=== PATIENT | female | born 1940 | race Caucasian/White ===

== ENCOUNTER → 2017-07-17 14:35 | Outpatient (CLI) | payer MEDICARE, SELFPAY ==
--- NOTE | 2017-07-17 14:43 | XR_ITS ---
XR chest 2V HISTORY: ITS.REASON: PERDOMO, PANLOBULAR EMPHYSEMA ORDERING PHYSICIAN: Travis Batres MD PATIENT AGE: 76 years COMPARISON: 08/04/2016 FINDINGS: The cardiomediastinal silhouette and pulmonary vascularity are within normal limits. There is hyperinflation with attenuation of the peripheral pulmonary vessels consistent with COPD/emphysema. The diaphragms are flattened and somewhat inverted. Calcified granulomas are present in the right lung base. No lobar consolidation or collapse. No effusions and no acute bony anomalies. IMPRESSION: Emphysema, no acute finding
== END ==
PROVIDERS: PCP Internal Medicine Adolescent Medicine; Visit Provider Internal Medicine Adolescent Medicine
DX: J43.1 Panlobular emphysema (principal); R06.09 Other forms of dyspnea
CPT/HCPCS: 71046

== ENCOUNTER 2017-09-15 09:45 | Day surgery (SDC) | payer MEDICARE, SELFPAY ==
[2017-09-12 13:59] VITALS: BMI 39.1
[2017-09-15] VITALS (7 sets, daily range): BP systolic 106–146; BP diastolic 61–77; PULSE 81–106; RESP 16–20; TEMP 36.4–36.6; O2SAT 96–100
--- NOTE | 2017-09-15 10:30 | HMH.ANESCL ---
[facility] Anesthesia Checklist - Patient Identification Patient Identification: Arm Band, Verbal (Name & ) - Structural Data Admitted From: Home Planned Operative Procedure/s: endo Consent for Planned Operative Procedure(s) Verified: Yes Verified Documents: Surgical Consent - NPO Status Verified Time NPO: 00:00 - Additional verifications Patient : No Anesthesia Reactions: No Hx Blood Transfusions: No Blood Transfusion Reaction: No Cephalosporin Allergy: No Previous Colonoscopy: Yes - Cardiovascular Assessment Heart Sounds: S1 & S2 Pulse Strength: Baseline Pulse Rhythm: Regular - Airway Assessment C-Spine Mobility Assessed: Yes TMJ Mobility Assessed: Yes Dentition: Edentulous - Neurological Assessment Level of Consciousness: Awake, Alert, Appropriate Hx Seizures: No Numbness or tingling in extremities: No - Anesthesia Plan Anesthesia Risk discussed: Yes Anesthesia Plan: Verified ASA Class: III Anesthesia Type: MAC [facility] Anesthesia HX I have reviewed the patient's past medical history: Yes Medical History: Reports:: Chronic Obstructive Pulmonary Disease (COPD), Lung Disease (copd/emphysema) Denies:: Diabetes Mellitus Type 1, Diabetes Mellitus Type 2, Internal Pacemaker, Seizures Other Surgeries: No: Pacemaker
--- NOTE | 2017-09-15 11:28 | HMH.PROC ---
[facility] Procedure Note Procedure Note:: Colonoscopy Procedure Report: Colonoscopy with cold snare polypectomy Endoscopist: Wali Bettencourt II, MD Referring physician: Travis Batres M.D. Date of Procedure: September 15, 2017 Equipment: Olympus 180 variable stiffness pediatric colonoscope Sedation: MAC sedation Indication: Mrs. Isabel is a 76-year-old female who had a positive Cologuard and small caliber stools and had a colonoscopy in March 2018. At that time she had 8 colon polyps removed. 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 The polyp appeared to be both tubular adenoma and serrated adenoma. The patient returns at 6 months to evaluate to ensure no residual colon polyp. The patient reports no abdominal pain, weight loss, change in her bowel habits or rectal bleeding. She does state that the fiber pills/tablets have significantly helped her. Procedure: Prior to the procedure, a history and physical exam was performed, and patient's medications and allergies were reviewed. The risks, benefits and alternatives of the sedation and procedure were discussed with the patient. All questions were answered and informed consent was obtained. The patient was brought to the procedure room. Patient identification and proposed procedure were verified by the physician and the nurse. The patient was placed in a left lateral decubitus position and the scope was passed under direct vision. Throughout the procedure, the patient's blood pressure, pulse, and oxygen saturations were monitored continuously. The colonoscopy was accomplished without difficulty. The patient tolerated the procedure well. Findings: On digital rectal examination there was normal rectal tone. There were no external hemorrhoids. The colonoscope was introduced through the anal canal to the rectum and advanced to the cecum. The ileocecal valve and appendiceal orifice were identified. The scope was advanced a short distance into the ileum which appeared grossly normal. The scope was then withdrawn into the colon. There were 6 colon polyps identified in the descending ?2, sigmoid ?2 and rectum ?2. These ranged in size from 4-7 mm and were all removed via cold snare polypectomy. There were scattered diverticuli throughout the descending and sigmoid colon (LEFT colon). The rectum itself was normal. Upon retroflexion within the rectum there were grade 1 internal hemorrhoids. Impression: 1. Colonic polyps ?6 2. Left-sided diverticulosis 3. Grade 1 internal hemorrhoids Plan: The polyps today were much smaller and behind haustral folds. I do feel that at this point, we can increase the surveillance interval to 2-3 years based upon the histology. I would continue fiber bulk supplementation on a long-term daily maintenance basis.
--- NOTE | 2017-09-15 11:31 | P.PCN_ITS ---
[facility] Procedure Note Procedure Note:: Colonoscopy Procedure Report: Colonoscopy with cold snare polypectomy Endoscopist: Wali Bettencourt II, MD Referring physician: Travis Batres M.D. Date of Procedure: September 15, 2017 Equipment: Olympus 180 variable stiffness pediatric colonoscope Sedation: MAC sedation Indication: Mrs. Isabel is a 76-year-old female who had a positive Cologuard and small caliber stools and had a colonoscopy in March 2018. At that time she had 8 colon polyps removed. 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 The polyp appeared to be both tubular adenoma and serrated adenoma. The patient returns at 6 months to evaluate to ensure no residual colon polyp. The patient reports no abdominal pain, weight loss, change in her bowel habits or rectal bleeding. She does state that the fiber pills/tablets have significantly helped her. Procedure: Prior to the procedure, a history and physical exam was performed, and patient' s medications and allergies were reviewed. The risks, benefits and alternatives of the sedation and procedure were discussed with the patient. All questions were answered and informed consent was obtained. The patient was brought to the procedure room. Patient identification and proposed procedure were verified by the physician and the nurse. The patient was placed in a left lateral decubitus position and the scope was passed under direct vision. Throughout the procedure, the patient's blood pressure, pulse, and oxygen saturations were monitored continuously. The colonoscopy was accomplished without difficulty. The patient tolerated the procedure well. Findings: On digital rectal examination there was normal rectal tone. There were no external hemorrhoids. The colonoscope was introduced through the anal canal to the rectum and advanced to the cecum. The ileocecal valve and appendiceal orifice were identified. The scope was advanced a short distance into the ileum which appeared grossly normal. The scope was then withdrawn into the colon. There were 6 colon polyps identified in the descending ?2, sigmoid ? 2 and rectum ?2. These ranged in size from 4-7 mm and were all removed via cold snare polypectomy. There were scattered diverticuli throughout the descending and sigmoid colon (LEFT colon). The rectum itself was normal. Upon retroflexion within the rectum there were grade 1 internal hemorrhoids. Impression: 1. Colonic polyps ?6 2. Left-sided diverticulosis 3. Grade 1 internal hemorrhoids Plan: The polyps today were much smaller and behind haustral folds. I do feel that at this point, we can increase the surveillance interval to 2-3 years based upon the histology. I would continue fiber bulk supplementation on a long-term daily maintenance basis.
--- NOTE | 2017-09-15 13:03 | P.PN_ITS ---
[facility] Anesthesia Checklist - Structural Data Planned Operative Procedure/s: colonoscopy Consent for Planned Operative Procedure(s) Verified: Yes - Anesthesia Plan Anesthesia Risk discussed: Yes Anesthesia Plan: Verified ASA Class: III Anesthesia Type: MAC [facility] Anesthesia HX I have reviewed the patient's past medical history: Yes Medical History: Reports:: Chronic Obstructive Pulmonary Disease (COPD), Lung Disease (copd/emphysema) Denies:: Diabetes Mellitus Type 1, Diabetes Mellitus Type 2, Internal Pacemaker, Seizures Other Medical History: Denies: Blood Transfusion Reaction Other Surgeries: No: Pacemaker
--- NOTE | 2017-09-15 13:57 | PC.NURSE ---
Dr. Bettencourt @ @ 1200. No new orders received. Follow up colonoscopy in 2 to 3 years.
== END 2017-09-15 12:10 | disposition home or self-care (01) ==
PROVIDERS: PCP Internal Medicine Adolescent Medicine; Visit Provider Internal Medicine Gastroenterology
PROC: 0DJD8ZZ Inspection of Lower Intestinal Tract, Via Natural or Artificial Opening Endoscopic (ICD-10-PCS; CPT 45378; principal; 2017-09-15 11:00)
DX: K63.5 Polyp of colon (principal); K57.30 Diverticulosis of large intestine without perforation or abscess without bleeding; K64.0 First degree hemorrhoids; Z86.010 Personal history of colon polyps
CPT/HCPCS: 45380; 88305

== ENCOUNTER → 2017-09-22 13:26 | Outpatient (CLI) | payer MEDICARE, SELFPAY | PROVIDERS: PCP Internal Medicine Adolescent Medicine; Visit Provider Internal Medicine | DX: J43.9 Emphysema, unspecified (principal) ==

== ENCOUNTER → 2017-09-23 09:18 | Outpatient (CLI) | payer MEDICARE, SELFPAY ==
[2017-09-23 09:59] LABS: Chol/HDL Ratio 1.1 (1-3.5); Cholesterol 156 mg/dL (140-200); HDL Cholesterol 140 mg/dL (29-89); LDL Cholesterol 7 mg/dL (0-130); Triglycerides 43 mg/dL (30-200); VLDL Cholesterol 9 mg/dL (0-40)
== END ==
PROVIDERS: Visit Provider Internal Medicine
DX: J43.9 Emphysema, unspecified (principal); I25.10 Atherosclerotic heart disease of native coronary artery without angina pectoris
CPT/HCPCS: 36415; 80061

== ENCOUNTER → 2017-09-30 12:56 | Outpatient (POV) | payer MEDICARE, SELFPAY | PROVIDERS: Visit Provider Internal Medicine | DX: Z00.00 Encounter for general adult medical examination without abnormal findings (principal) ==

== ENCOUNTER 2017-10-17 18:20 | Observation (INO) ==
[2017-10-17 19:04] LABS: Basophils % 0.2 % (0.1-2.0); Eosinophils % 0.2 % (0.1-12.0); Hematocrit 40.2 % (37.0-47.0); Hemoglobin 12.8 g/dL (12.2-16.2); Lymphocytes # 1.4 K/mm3 (0.7-4.5); Lymphocytes % 12.2 K/mm3 (10-50); Mean Corpuscular Hemoglobin 30.7 pg (27.0-31.2); Mean Platelet Volume 7.4 fl (7.4-10.4); Monocytes # 0.8 K/mm3 (0.1-1.0); Monocytes % 7.3 % (1.7-9.3); Neutrophils # 8.9 K/mm3 (1.8-7.8); Neutrophils % 80.1 % (37.0-80.0); Platelet Count 230 K/mm3 (142-424); Red Blood Count 4.18 M/mm3 (4.20-5.40); Red Cell Distribution Width 12.8 % (11.5-17.5); White Blood Count 11.1 K/mm3 (4.8-10.8)
[2017-10-17 19:29] LABS: Alanine Aminotransferase 59 U/L (12-78); Albumin Level 3.9 gm/dL (3.4-5.0); Albumin/Globulin Ratio 1.1 (1.1-1.8); Alkaline Phosphatase 67 U/L (46-116); Anion Gap 5.8 mEq/L (5-15); Aspartate Amino Transferase 43 U/L (15-37); Bilirubin,Total 0.3 mg/dL (0.2-1.0); Blood Urea Nitrogen 11 mg/dL (7-18); Calcium 9.2 mg/dL (8.5-10.1); Carbon Dioxide 37 mmol/L (21.0-32.0); Chloride 102 mmol/L (98-107); Creatine Kinase 160 U/L (26-192); Globulin 3.6 gm/dl (1.3-3.2); Glucose 110 mg/dL (74-106); Potassium 3.8 mmoL/L (3.5-5.1); Sodium 141 mmol/L (136-145); Total Protein,Serum 7.5 gm/dL (6.4-8.2)
--- NOTE | 2017-10-17 20:23 | Emergency Department Note ---
ED Disposition Clinical Impression: COPD exacerbation Disposition: Still a Patient Condition on Discharge: Good - Critical Care Critical Care Time: No Attestation: On 10/17/17, the high probability of a clinically significant, sudden or life threatening deterioration of the following system(s) required my full and direct attention, intervention and personal management. The time I documented below is in addition to time spent performing reported procedures but includes the following listed in this critical care notation. Medical Decision Making - [place] Inquiry Pt receiving controlled substance: No Vital Signs: 10/17/17 18:51 10/17/17 18:54 Temperature 98.6 F Temperature Source Oral Pulse Rate 93 H Pulse Rate [Left Radial] 94 H Respiratory Rate 22 Blood Pressure [Right Arm] 163/88 Blood Pressure Mean [Right Arm] 113 Blood Pressure Position [Right Arm] Sitting 02 Sat by Pulse Oximetry 100 Oxygen Delivery Method Room Air - Lab Data Lab Results 10/17/17 18:40: WBC 11.1 H, RBC 4.18 L, Hgb 12.8, Hct 40.2, MCV 96.0, MCH 30.7, MCHC 32.0, RDW 12.8, Plt Count 230, MPV 7.4, Neut % (Auto) 80.1 H, Lymph % (Auto ) 12.2, Schleicher % (Auto) 7.3, Eos % (Auto) 0.2, Baso % (Auto) 0.2, Neut # (Auto) 8.9 H, Lymph # (Auto) 1.4, Schleicher # (Auto) 0.8, Eos # (Auto) 0.0, Baso # (Auto) 0.0 10/17/17 18:40: Sodium 141, Potassium 3.8, Chloride 102, Carbon Dioxide 37 H, Anion Gap 5.8, BUN 11, Creatinine 0.70, Estimated Creat Clear 37, Estimated GFR 82, Est GFR ( Amer) 99, Glucose 110 H, Calcium 9.2, Total Bilirubin 0.3, AST 43 H, ALT 59, Alkaline Phosphatase 67, Total Creatine Kinase 160, CK-MB (CK- 2) 4.8 H, CK-MB (CK-2) Rel Index 3.0, Troponin I < 0.02, Total Protein 7.5, Albumin 3.9, Globulin 3.6 H, Albumin/Globulin Ratio 1.1 10/17/17 18:40: Lactic Acid 0.7 10/17/17 18:40: D-Dimer 222 Result diagrams: 10/17/17 18:40 10/17/17 18:40 Orders (Tests/Meds): ED MEDICATIONS Discontinued Medications Generic Name Dose Route Start Last Admin Trade Name Gi PRN Reason Stop Dose Admin Albuterol/Ipratropium 3 ml 10/17/17 18:58 10/17/17 18:59 Duoneb 3ml Neb IH 10/17/17 18:59 3 ml ONCE ONE Administration Methylprednisolone Sodium Succinate 125 mg 10/17/17 19:19 10/17/17 19:21 Solu-Medrol 125mg/2ml Vial IV 10/17/17 19:20 125 mg ONCE ONE Administration ORDERS Category Date Time Status CXR --portable [XR chest portable] Stat Exams 10/17/17 18:57 Taken Blood Culture Stat Micro 10/17/17 18:40 Received - Radiology Data #1 Image(s): Chest Image Reviewed: Yes I reviewed the patient's radiology image COPD, pulmonary fibrosis, calcified granulomas right base. No acute process seen. No pneumothorax or pneumonia seen. - ECG Data Tracing #1 EKG interpreted by Zachary Giordano MD: Rhythm: sinus tachycardia Rate: 111 [place]: normal Ectopy: none Conduction: normal ST Segment Changes: none T Wave Changes: none Q Waves: V1 and V2 No evidence of acute ischemia or injury Poor R-wave progression Prior electrocardiagrams reviewed. No change from prior tracings. Baseline artifact present, but I consider the EKG adequate for accurate interpretation. Medical Decision Narrative: Patient has been on maximal treatment at home and is failed outpatient management. She indicates that she is not able to get up and function today. I recommended admission and she is agreeable. 9:20 PM: I have discussed the case with Dr. Saleh for Dr. Batres who agrees to admit the patient to the hospital. We discussed the patient's clinical information, including history, exam, laboratory and radiology results and ED course. Per hospital procedure, I will write temporary bridge inpatient orders on the patient. Specific orders requested by the admitting physician: Continue intravenous steroids, nebulizer treatments. No antibiotics at this time. General Adult HPI - General Chief complaint: Shortness of Breath/Dyspnea Stated complaint: SOA Time Seen by Provider: 10/17/17 20:10 Mode of Arrival: Wheelchair Limitations: No Limitations Description of Symptoms (Recalled from ER Triage Doc. by RN): Feeling SOA starting Friday , talked to Eduardason her increased steroid but states it has not gotten any better - History of Present Illness HPI narrative: 8:00 PM: At shift change, patient report received from Dr. Salinas, and care of the patient assumed by me at this time. The patient has severe COPD, she is on oxygen at home. She is chronically on steroids and nebulizer treatments and inhalers. She takes an antibiotic 3 times a week. She says that she got increasingly short of breath over the weekend 6 days ago. Today she says she can hardly get up and walk due to shortness of breath and she also has a pleuritic pain in both shoulder blades. She denies cough or hemoptysis or fever. She says she has never had this kind of pain before. She says that she called her primary care provider on Friday and her prednisone dose was increased from 10 mg a day to 40 mg a day. She also says that her computer publisher, Dr. Washington, recently changed 1 of her inhalers from Spiriva to a different one, she does not know the name. No leg pain or swelling. No recent hospitalizations or surgeries. - Related Data Home Medications Medication Instructions Recorded Confirmed Albuterol Sulfate [Albuterol 1.25 mg IH DAILY 09/12/17 10/17/17 0.042% 1.25mg/3mL neb] Azithromycin [Z-[place] 250mg Tab] 250 mg PO WEEKLY 09/12/17 10/17/17 Miscellaneous Medical Supply 1 each IH CONT 09/12/17 10/17/17 [Oxygen, Portable] Tiotropium [place] [Spiriva 1 mcg PO DAILY 09/12/17 10/17/17 18mcg/puff inhaler] Atorvastatin Calcium [Atorvastatin 40 mg PO DAILY 09/15/17 10/17/17 40mg Tab] Methylcellulose [Fiber] 500 mg PO DAILY 09/15/17 10/17/17 predniSONE [Prednisone 20mg 20 mg PO DAILY 09/15/17 10/17/17 Tab] Allergies Allergy/AdvReac Type Severity Reaction Status Date / Time No Known Allergies Allergy Verified 09/15/17 09:59 [facility] History I have reviewed the patient's past medical history: Yes Medical History: Reports:: Chronic Obstructive Pulmonary Disease (COPD), Lung Disease (copd/emphysema) Denies:: Diabetes Mellitus Type 1, Diabetes Mellitus Type 2, Internal Pacemaker, Seizures Other Medical History: Denies: Blood Transfusion Reaction Other Surgeries: No: Pacemaker - Social History Smoking Status: Former smoker Smoking End Date: 2014 Alcohol Intake: current Alcohol Intake Frequency:: holidays/special occasions only - Psychiatric History Expresses thoughts of harming self/others: None Suicide Plan Description: No Plan ROS Obtained: Yes All systems reviewed & no additional complaints - Constitutional Constitutional: Denies fatigue - Cardiovascular Cardiovascular: Reports chest pain, Denies leg edema - Respiratory Respiratory: No cough, Yes dyspnea, No coughing up blood - Gastrointestinal Gastrointestingal: Denies: vomiting Physical Exam - General General appearance: alert, in no apparent distress - Head Head exam: atraumatic, normocephalic, normal inspection - Eye Eye exam: Present: normal appearance, PERRL, EOMI - ENT ENT exam: Present: normal exam, normal oropharynx, mucous membranes moist, TM's normal bilaterally, normal external ear exam - Neck Neck exam: Present: normal inspection, full ROM, trachea midline. Absent: meningismus, lymphadenopathy - Chest Chest inspection: Present: normal inspection, symmetric chest wall rise. Absent : tenderness - Respiratory Respiratory exam: Present: normal lung sounds bilaterally. Absent: respiratory distress - Cardiovascular Cardiovascular exam: Present: normal rhythm, tachycardia. Absent: JVD - Abdominal Exam Abdominal exam: Present: soft, normal bowel sounds. Absent: distention, tenderness, guarding - Extremities Exam Extremities exam: Present: normal inspection, full ROM, normal capillary refill. Absent: calf tenderness - Back Exam Back exam: Present: normal inspection. Absent: tenderness - Neurological Exam Neurological exam: Present: alert, oriented X3 - Psychiatric Psychiatric exam: Present: normal affect, normal mood - Skin Skin exam: Present: warm, dry, intact, normal color
--- NOTE | 2017-10-18 07:46 | H&P/Discharge Summary ---
General - General Admission date: 10/17/17 Discharge date: 10/18/17 *Admission Date: 10/17/17 *Chief complaint: Shortness of breath *History of present illness: 76-year-old female with COPD requiring chronic oxygen therapy presented to the emergency department last night after she developed some interscapular pain. Earlier in the week patient had noticed increased dyspnea and contacted Dr. Harvey who recommended an increase in her home dose of daily prednisone. Patient did this but did not feel like she was improving. She became concerned yesterday evening when she developed interscapular pain. She came to the emergency department and underwent evaluation. She was satting well on her nasal cannula oxygen at 2 L minute and had a relatively unrevealing workup. Because of her distress decision was made to admit her for observation. She was given intravenous steroids and duo nebs. [facility] History I have reviewed the patient's past medical history: Yes Medical History: Reports:: Chronic Obstructive Pulmonary Disease (COPD), Lung Disease (copd/emphysema) Denies:: Diabetes Mellitus Type 1, Diabetes Mellitus Type 2, Internal Pacemaker, Seizures Other Medical History: Denies: Blood Transfusion Reaction Other Surgeries: No: Pacemaker - *Social History Smoking Status: Former smoker Tobacco Type: cigarettes Smoking End Date: 2014 Alcohol Intake: never Alcohol Intake Frequency:: holidays/special occasions only Occupational Status: other - Psychiatric History Expresses thoughts of harming self/others: None Suicide Plan Description: No Plan Review of Systems - Review of Systems Review of systems:: pertinent systems reviewed and negative unless documented below Exam Vital signs and Labs for Last 24 Hours: Temp Pulse Resp BP Pulse Ox 98.7 F 80 20 100/60 93 L 10/18/17 03:40 10/18/17 06:38 10/18/17 03:40 10/18/17 03:40 10/18/17 06:38 I & O for Last 24 hours: Intake & Output 10/15/17 10/16/17 10/17/17 10/18/17 11:59 11:59 11:59 11:59 Intake Total 240 / 240 Output Total 250 / 250 Balance -10 / -10 Weight 101 lb 7 oz Narrative: On examination patient is awake, alert, pleasant and walking about the room the morning of the examination. As a matter of fact I mistook her for a family member here visiting the patient. Nasal cannula is in place. Oropharynx is moist and clear. Neck is without lymphadenopathy. Lungs are distant but no rales or wheezes. Heart had a regular rate and rhythm. Abdomen was thin and soft. Extremities were warm to the touch and there is no pedal edema. Hospital Course Hospital Course: Patient received intravenous steroids and by the following morning noticed improvement and resolution in interscapular pain. She requested discharge to home and her wish was granted DS: Diagnosis - Discharge Diagnosis (1) COPD exacerbation Status: Acute Discharge Medications Discharge Medications: Home Medications Medication Instructions Recorded Confirmed Type Albuterol Sulfate [Albuterol 1.25 mg IH DAILY 09/12/17 10/17/17 History 0.042% 1.25mg/3mL neb] Miscellaneous Medical Supply 1 each IH CONT 09/12/17 10/17/17 History [Oxygen, Portable] Atorvastatin Calcium [Atorvastatin 40 mg PO DAILY 09/15/17 10/17/17 History 40mg Tab] Methylcellulose [Fiber] 500 mg PO DAILY 09/15/17 10/17/17 History predniSONE [Prednisone 20mg 20 mg PO BID 09/15/17 10/17/17 History Tab] Azithromycin [Zithromax 250mg 250 mg PO TID 10/17/17 10/17/17 History tab] Tiotropium [place] [Spiriva 1 puff IH DAILY 10/17/17 10/17/17 History 18mcg/puff inhaler] Disposition Disposition: Home, Self-Care
== END 2017-10-18 08:26 | disposition home or self-care (01) ==
LOC: ER 18:20 → 2ND 18:20
PROVIDERS: ADMIT Family Medicine; ATTEND Internal Medicine Adolescent Medicine

== ENCOUNTER 2018-02-10 11:00 | Outpatient (RCR) | payer MEDICARE, SELFPAY ==
--- NOTE | 2018-01-12 15:33 | HMH.PTOPWND ---
Rehab Outpt Wound Evaluation Rehab OP Wound Evaluation Start: 01/12/18 14:37 Freq: Status: Active Protocol: Document 01/12/18 15:14 ZEE (Rec: 01/12/18 15:32 PHORNE [id number]) Electronically Signed By Rubio Davis, PT 01/12/18 15:14 Subjective/History History History Pt is 77 yo white female who presents with c/o james LE edema x ~ 1 mo with insidious onset of symptoms. She reports no pain today, but they are very painful at certain times. She also has no c/o numbness/ tingling. She has a hx of COPD requiring oxygen via NC. She reports she had a COPD exacerbation ~ 3 mos ago which required her taking po prednisone for a short time in addition to her normal nebs and inhalers. Subjective Subjective Currently no c/o pain, but at worst 10/10. 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 Stage of Lymphedema Lymphedema stages Stage I (Pitting edema, reduces w/ elevation, no fibrosis) Skin Changes Dry Skin Yes Taut, Shiny Skin Yes Redness Yes Discoloration of Skin Yes Pain Scale Pain Scale (0-10) 0 Affected Extremities Areas Affected by Lymphedema/Edema Right Lower Extremity Left Lower Extremity Manual Lymphatic Drainage Treatment Area MLD Treatment Area Right Lower Extremity Left Lower Extremity Wound Problems/Impairments Impairments Problems/Impairmments Palpation Tenderness Impaired Walking Increased Edema Lymphedema Present Subjective C/O Pain Impaired Self Care/Self Management Prognosis Rehab Potential Good Clinical Impression Consistent with Diagnosis Yes Short Term Goals Number of Weeks 4 Decreased Palpation Tenderness Yes: to min Decrease Subjective C/O Pain Yes: 7/10 at worst Patient to Understand Lymphedema Yes Treatment and Exercises Decrease Girth Measurments by (cm) Yes: by 5 cm Gamb Cutter Goals Number of Weeks 8 Decreased Palpation Tenderness Yes: to none
== END 2018-02-10 11:01 | disposition home or self-care (01) ==
LOC: PT 11:00
PROVIDERS: Visit Provider Internal Medicine Adolescent Medicine
DX: I89.0 Lymphedema, not elsewhere classified (principal)
CPT/HCPCS: 97140; 97162

== ENCOUNTER → 2018-04-07 10:40 | Outpatient (POV) | payer MEDICARE, SELFPAY | PROVIDERS: Visit Provider Internal Medicine | DX: Z00.00 Encounter for general adult medical examination without abnormal findings (principal) ==

== ENCOUNTER → 2018-09-01 10:52 | Outpatient (POV) | payer MEDICARE, SELFPAY | PROVIDERS: Visit Provider Nurse Practitioner Acute Care | DX: Z00.00 Encounter for general adult medical examination without abnormal findings (principal) ==

== ENCOUNTER 2018-10-20 13:00 | Outpatient (RCR) | payer MEDICARE, SELFPAY ==
--- NOTE | 2018-08-04 15:02 | HMH.PTOPWND ---
Rehab Outpt Wound Evaluation Rehab OP Wound Evaluation Start: 08/04/18 14:56 Freq: Status: Active Protocol: Document 08/04/18 14:56 ZEE (Rec: 08/04/18 15:02 PHORNE [id number]) Electronically Signed By Rubio Davis, PT 08/04/18 14:56 Subjective/History History History Pt is 77 yowf who presents with ~1-2 mos of increased james LE edema with insidious onset of symptoms. She reports multiple scratches and bruises from donning of her compression stockings that she bought at a medical supply store. She reports no c/o pain at this time and only mild tenderness to palpation, but does have significant 3+ pitting edema james. She also rpesents with several serous blisters along the posterior and lateral aspects of james lower legs.She has hx of COPD and is O2 dependent via NC. Lymphedema Eval Classification of Lymphedema Secondary Lymphedema Yes Stemmer's sign Stemmer's Sign no Stage of Lymphedema Lymphedema stages Stage I (Pitting edema, reduces w/ elevation, no fibrosis) Skin Changes Dry Skin Yes Redness Yes Blisters Yes Wounds Yes Discoloration of Skin Yes Other Changes Yes Affected Extremities Areas Affected by Lymphedema/Edema Right Lower Extremity Left Lower Extremity Manual Lymphatic Drainage Treatment Area MLD Treatment Area Right Lower Extremity Left Lower Extremity Wound Problems/Impairments Impairments Problems/Impairmments Palpation Tenderness Impaired Endurance Impaired Walking Increased Edema Lymphedema Present Wound Care Needs Subjective C/O Pain Impaired Self Care/Self Management Prognosis Rehab Potential Good Clinical Impression Consistent with Diagnosis Yes Short Term Goals Number of Weeks 4 Decreased Palpation Tenderness Yes: to min Patient to be Ind w/ Home Wound Care/ Yes Dressi
== END 2018-10-20 13:35 | disposition home or self-care (01) ==
LOC: PT 13:00
PROVIDERS: Visit Provider Internal Medicine Adolescent Medicine
DX: I89.0 Lymphedema, not elsewhere classified (principal)
CPT/HCPCS: 97140; 97162; 97760

== ENCOUNTER 2018-11-04 15:00 | Outpatient (RCR) | payer MEDICARE, SELFPAY ==
--- NOTE | 2018-10-20 13:20 | [facility]H.PTOPWND ---
Rehab Outpt Wound Evaluation Rehab OP Wound Evaluation Start: 10/20/18 13:13 Freq: Status: Active Protocol: Document 10/20/18 13:13 ZEE (Rec: 10/20/18 13:20 PHORNE [id number]) Electronically Signed By Rubio Davis, PT 10/20/18 13:13 Subjective/History History History Pt is 81 yowf who presents with c/o increased edema locally at the inferior lateral right knee. She reports ~ 1-2 wks ago she bumped my leg into a table which resulted in a knot forming. She reports she has been wearing her compression garments and doesn't have any other trouble currently. She has no c/o pain currently and no tenderness to palpation. She has hx of COPD with oxygen requirements at all times. Lymphedema Eval Classification of Lymphedema Secondary Lymphedema Yes Stemmer's sign Stemmer's Sign no Stage of Lymphedema Lymphedema stages Stage I (Pitting edema, reduces w/ elevation, no fibrosis) Skin Changes Dry Skin Yes Taut, Shiny Skin Yes Redness Yes Other Changes Yes Pain Scale Pain Scale (0-10) 0 Affected Extremities Areas Affected by Lymphedema/Edema Right Lower Extremity Left Lower Extremity Manual Lymphatic Drainage Treatment Area MLD Treatment Area Right Lower Extremity Left Lower Extremity Wound Problems/Impairments Impairments Problems/Impairmments Impaired Walking Impaired Standing Impaired Recreational Activities Increased Edema Lymphedema Present Impaired Self Care/Self Management Prognosis Rehab Potential Good Clinical Impression Consistent with Diagnosis Yes Short Term Goals Number of Weeks 4 Patient to be Ind w/ [place] Yes Compression Garments Patient to Understand Lymphedema Yes Treatment and Exercises Decrease Girth Measurments by (cm) Yes: by 3 cm Snf Goals Number of Weeks 8 Patient to be Ind w/ HEP Yes Patient to be Ind w/ Lymphedema Self Yes Massage Technique
== END 2018-11-04 15:15 | disposition home or self-care (01) ==
LOC: PT 15:00
PROVIDERS: Visit Provider Internal Medicine Adolescent Medicine
DX: I89.0 Lymphedema, not elsewhere classified (principal)
CPT/HCPCS: 97140; 97162